=== PATIENT | male | born 1985 | race African-American/Black ===

== ENCOUNTER 2017-07-01 12:33 | Emergency (ER) | payer OTHER | END 2017-07-01 13:08 | disposition left against medical advice (07) | LOC: E/R 13:08 | DX: Z53.21 Procedure and treatment not carried out due to patient leaving prior to being seen by health care provider (principal) ==

== ENCOUNTER 2017-07-01 13:59 | Emergency (ER) | payer OTHER ==
[2017-07-01] MEDS: CEFTRIAXONE 250 MG INJ IM (16:59)
[2017-07-01] MEDS: AZITHROMYCIN 250 MG TAB PO (16:59)
[2017-07-01 17:50] LABS: ADD UMIC NO; UR ASCORBIC ACID NEGATIVE (NEGATIVE); UR BILIRUBIN (Dip) NEGATIVE (NEGATIVE); UR BLOOD (Dip) NEGATIVE (NEGATIVE); UR CLARITY SLIGHTLY CLOUDY (CLEAR); UR COLOR YELLOW (YELLOW); UR GLUCOSE (Dip) NEGATIVE (NEGATIVE); UR KETONES (Dip) NEGATIVE (NEGATIVE); UR LEUKOCYTE ESTERASE (Dip) NEGATIVE Leu/ul (NEGATIVE); UR MUCUS FEW /HPF (NONE SEEN); UR NITRITE (Dip) NEGATIVE (NEGATIVE); UR RBC 0 /HPF (0-5); UR SPECIFIC GRAVITY (Dip) 1.021 (1.003-1.030); UR TOTAL PROTEIN (Dip) NEGATIVE (NEGATIVE); UR UROBILINOGEN (Dip) NEGATIVE (NEGATIVE); UR WBC 0 /HPF (0-5)
== END 2017-07-01 17:38 | disposition home or self-care (01) ==
LOC: FTE 13:59
DX: R36.0 Urethral discharge without blood (principal); R59.0 Localized enlarged lymph nodes; J45.909 Unspecified asthma, uncomplicated
CPT/HCPCS: 81001; 81003; 87591; 96372; 99284-25